=== PATIENT | female | born 1990 | race Two or more races ===

== ENCOUNTER 2022-11-04 14:12 | Emergency (ER) | payer MEDICAID, OTHER ==
[~2022-11-04] VITALS: Ht 165.1 cm; Wt 49.0 kg
[2022-11-04] MEDS ORDERED: FAMOTIDINE (20 MG) 20 MG TABLET ONE (14:59)
[2022-11-04] MEDS ORDERED: EPINEPHRINE (1:1000) 1 MG/ML AMPUL ONE (14:59)
[2022-11-04] MEDS ORDERED: methylPREDNISolone SOD SUCC 125 MG/2ML VIAL ONE (14:59)
[2022-11-04] MEDS ORDERED: diphenhydrAMINE HCL 50 MG CAPSULE ONE (14:59)
[2022-11-04] MEDS ORDERED: methylPREDNISolone SOD SUCC 125 MG/2ML VIAL IM ONE (15:00)
[2022-11-04] MEDS ORDERED: diphenhydrAMINE HCL 50 MG CAPSULE PO ONE (15:00)
[2022-11-04] MEDS ORDERED: EPINEPHRINE (1:1000) 1 MG/ML AMPUL IM ONE (15:00)
[2022-11-04] MEDS ORDERED: FAMOTIDINE (20 MG) 20 MG TABLET PO ONE (15:00)
[2022-11-04] MEDS ORDERED: FAMO-131 PO (16:21)
[2022-11-04] MEDS ORDERED: DIPH25CA83 PO (16:21)
[2022-11-04 16:50] VITALS: BP 130/88; TEMP 98.5; O2SAT 97
== END 2022-11-04 16:52 | disposition home or self-care (01) ==
LOC: ER 14:42
DX: L50.9 Urticaria, unspecified (principal); F17.200 Nicotine dependence, unspecified, uncomplicated
CPT/HCPCS: 99285; 96372 ×2; Q0163; J0171; J2930